=== PATIENT | female | born 1970 | race Caucasian/White ===

== ENCOUNTER 2020-02-17 07:55 | Day surgery (SDC) | payer OTHER ==
[~2020-02-17] VITALS: Ht 172.7 cm; Wt 83.0 kg
--- NOTE | 2020-02-17 09:00 | NUR ---
PATIENT RESTING BACK IN BED, CONVERSING WITH . NO NEEDS AT THIS TIME.
--- NOTE | 2020-02-17 10:00 | NUR ---
PATIENT UP TO BATHROOM, APPEARS STEADY ON FEET. NO OTHER NEEDS AT THIS TIME CALL LIGHT WITHINR REACH.
--- NOTE | 2020-02-17 11:14 | NUR ---
PATIENT RESTING BACK IN BED. IV FLUIDS DRIPPING, SITE TO LEFT HAND INFLAMED. DC'D IV. STARTED NEW IV TO LEFT HAND. PATIENT TOLERATED WELL. PROVIDED WARM BLANKETS. BAIRON MCCLOUD AND CHRIS NOGUERA TO ROOM NOTIFIED PATIENT WOULD BE WAITING FOR ANOTHER 2 HOURS.
--- NOTE | 2020-02-17 12:21 | NUR ---
PATIENT RESTING BACK IN BED, APPEARS TO BE NAPPING. AT BEDSIDE. NO NEEDS AT THIS TIME. VSS.
--- NOTE | 2020-02-17 15:18 | NUR ---
02/17/20 1518 Marisol Armstrong 1513: DR. BENTON IN TO TALK WITH PATIENT. PATIENT DENIES PAIN. C/O URGE TO VOID. LI CATHETER IN PLACE. EDUCATED PATIENT ON LI CATHETER.
--- NOTE | 2020-02-17 17:00 | NUR ---
PATIENT UP TO BATHROOM STEADY ON FEET. LI REMOVED, 400 CLEAR YELLOW URINE IN BAG. PATIENT RATES PAIN 2/10 ON PAIN SCALE WITH PAIN MEDICAITON ADMINISTERED. PROVIDED FLUIDS FOR PATIENT TO DRINK. PATIENT STATES " I WOULD LIKE TO GET OUT OF HERE BY 5:30" GOAL TO URINATE ON OWN BY THEN. SCRIPT IN PATIENT HAND WHO PLANS TO GET IT FILLED.
--- NOTE | 2020-02-17 17:39 | NUR ---
PT UP TO USE THE RESTROOM. PT AMBULATED INDEPENDENTLY WITH NO COMPLICATIONS. PT VOIDS 300ML WITH NO COMPLICATIONS.
--- NOTE | 2020-02-17 17:47 | NUR ---
REMOVED IV IN THE LEFT HAND. DC WAS WITHIN NORMAL LIMITS WITH NO COMPLICATIONS NOTED.
--- NOTE | 2020-02-17 18:04 | NUR ---
PROVIDED DISCHARGE EDUCATION TO PATIENT. ADMINISTERED SECOND TAB OF PERCOCET PER MAR TO PATIENT WHO RATED PAIN 4/10 ON PAIN SCALE, PATIENT HAS TO RIDE IN VEHICLE TO [facility] AND REQUESTED SECOND TAB. VSS. PROVIDED WHEELCHAIR RIDE TO FRONT, PATIENT TRANSFERED INTO VEHICLE EASY.
--- NOTE | 2020-02-22 14:04 | OR ---
[address] [place], [place] [address] Signed DATE OF OPERATION: 02/17/2020 SURGEON: Esau Bergeron MD PREOPERATIVE DIAGNOSIS: Heavy menstrual bleeding secondary to dysmenorrhea and adenomyosis. POSTOPERATIVE DIAGNOSIS: Heavy menstrual bleeding secondary to dysmenorrhea and adenomyosis. PROCEDURES PERFORMED: Total laparoscopic hysterectomy with bilateral salpingectomy and cystoscopy. INSURANCE AGENCY SALES MANAGER: Esau Bergeron M.D. INSURANCE AGENCY SALES MANAGER: Dr. Armstrong. ANESTHESIA: General. ESTIMATED BLOOD LOSS: 30 mL. SPECIMENS: Uterus with cervix and both fallopian tubes. DRAINS: Metz to bladder. PACKING: None. FINDINGS: Cervix small with stenotic os. Normal size and shaped uterus. The anterior cul-de-sac was free of any endometriosis or adhesions. The posterior cul-de-sac was free of any endometriosis or adhesions. The left tube with normal length and normal-appearing fimbriated end. The midportion of the tube missing from previous tubal ligation and no adhesions present and left ovary was normal size and shape without any evidence of Electronically Signed By: ESAU BERGERON MD 02/18/20 1253 PATIENT NAME: JESSICA TYLER OPERATIVE REPORT DATE OF : 72 REPORT #: [id number] PHYSICIAN: ESAU BERGERON MD PCP: NO PRIMARY CARE PHYSICIAN REPORT IS CONFIDENTIAL AND NOT TO BE RELEASED WITHOUT AUTHORIZATION [facility] [address] [place] [address], [place] [address] Signed endometriosis or adhesions. The right tube was normal length and normal-appearing fimbriated end, had small paratubal cyst present and showed evidence of previous tubal ligation and midportion of the tube missing. There were no adhesions present. Right ovary is normal size and shape without any evidence of endometriosis or adhesions. The rest of the abdomen is free of any masses or adhesions. The liver appeared normal and the right upper quadrant showed omentum with no other adhesions seen. DESCRIPTION OF PROCEDURE: The patient was brought into the operating room and placed in supine position. After adequate general anesthesia was obtained, she was placed in the dorsal lithotomy position, prepped and draped in the usual sterile fashion. Metz catheter was placed in the bladder and a weighted speculum placed in the vagina. The anterior lip of the cervix was grasped with an Allis clamp and the cervix serially dilated. There was difficulty getting the VCare uterine manipulator in place even after dilating the cervix, so attention was then drawn to the abdomen. A small infraumbilical skin incision was made with a scalpel after injecting the area with 0.25% Marcaine with epinephrine. Subcutaneous tissue was dissected with Metzenbaum scissors. The fascia identified and grasped with hemostats, elevated and nicked with Metzenbaum scissors and extended transverse fashion using Metzenbaum scissors. Retention stitch of 0-Vicryl suture was placed above and below the incision. The peritoneum was opened with finger dissection and S retractor was inserted into the incision and spun in 360-degree fashion showing no adhesions or blockage. The Jaycee cannula and sleeve entered the abdomen under direct visualization. The S retractor removed and the balloon filled with air. The outer sleeve was slid down to the skin and the retention stitches attached to this. Trocar was removed and laparoscope with video attachment entered the abdomen under direct visualization. Carbon dioxide was used as distending medium. The above findings were noted. In the left lower quadrant just below the level of the umbilicus approximately 10 cm lateral to the midline, the abdominal wall was transilluminated to avoid any vessels. The area injected with 0.25% Marcaine with epinephrine and a small skin incision made with a scalpel. A bladed 5-mm trocar and sleeve entered the abdomen under direct visualization. Trocar was removed and the balloon filled with air. On the right side, again just below the level of the umbilicus, an approximately 10 cm lateral to the midline. Again, the abdominal wall was transilluminated and the skin injected with 0.25% Marcaine with epinephrine and a small skin incision made with a scalpel. Veress needle with expandable sleeve was placed in the abdomen under direct visualization. The Veress needle was removed and expandable trocar and port placed through the expandable sleeve into the abdomen under direct visualization. Trocar was removed. Both instruments were then placed through the two lateral ports for the rest of the procedure. Once the uterus could be observed, attention was then drawn back to the Electronically Signed By: ESAU BERGERON MD 02/18/20 1253 PATIENT NAME: JESSICA TYLER OPERATIVE REPORT DATE OF : 72 REPORT #: [id number] PHYSICIAN: ESAU BERGERON MD PCP: NO PRIMARY CARE PHYSICIAN REPORT IS CONFIDENTIAL AND NOT TO BE RELEASED WITHOUT AUTHORIZATION [address] [address] Signed vagina, where the VCare manipulator was removed and again weighted speculum was placed in the vagina and the anterior lip of the cervix was grasped with Allis clamp and the cervix again dilated and the VCare uterine manipulator finally entered the uterine cavity, watching from above to make sure that went towards the fundus and not out of the uterus. The balloon was filled with air and the Allis clamp and weighted speculum were removed. The cervical cap slid up around the cervix and the vaginal cup was placed up against the cervical cap and tightened in place to hold the cap against the cervix. Attention was then drawn back to the abdomen. The LigaSure bipolar forceps were used for the dissection. The two fallopian tubes were cauterized along the mesosalpinx and then across the mesosalpinx at the area of the tubal ligation and the two distal tubal segments were removed. The left round ligament was cauterized in three places and then the utero-ovarian ligament cauterized in several places and cut. This opened the upper portion of the broad ligament. The anterior and posterior leaves of the broad ligament were then individually cauterized and cut down the length towards the cervical cap and around to the midline inside the cervical cap above and below the uterus. The uterine vessels were then exposed, these were cauterized in several places and cut. The paracervical tissue inside the cervical cap was cauterized and cut down to the level of the vaginal wall. The right side was then done in similar fashion, cauterizing the round ligament in several places and cutting the round ligament, cauterizing the uteroovarian ligament in several places and then individually cauterizing and cutting the broad ligament down the side of the uterus and to the midline connecting with previous dissection. Uterine vessels on this side were then identified, cauterized, and cut. The paracervical tissue on this side was cauterized and cut down to the vaginal wall. Once this was cleared down to the wall, the Sonicision was brought to the operating field and the midline posterior vaginal wall was opened with the Sonicision into the groove of the cervical cap and extended posterior to anterior on the left side and then posterior to anterior on the right side, staying in the groove of the cervical cap, the cervix and uterus from the vagina. The VCare uterine manipulator was then carefully removed with the uterus attached through the vagina and then a lap filled glove placed in the vagina, so that the abdomen could be re-insufflated. The abdomen was then irrigated, suctioned, and examined noted to have good hemostasis. The vaginal opening was easily seen. The Endo Stitch with barbed suture was then used to close the cuff starting at the right uterosacral ligament, posterior to anterior and then putting the stitch through the loop at the end of the barbed suture. The anterior vaginal wall at the corner was then sutured again posterior to anterior with the Endo stitch. This was continued from the right uterosacral ligament to the left uterosacral Electronically Signed By: ESAU BERGERON MD 02/18/20 1253 PATIENT NAME: JESSICA TYLER OPERATIVE REPORT DATE OF : 72 REPORT #: [id number] PHYSICIAN: ESAU BERGERON MD PCP: NO PRIMARY CARE PHYSICIAN REPORT IS CONFIDENTIAL AND NOT TO BE RELEASED WITHOUT AUTHORIZATION [facility] [address] [place], [place] [address] Signed ligament individually incorporating the posterior vaginal wall and the anterior vaginal wall across. Upon reaching the left uterosacral ligament several stitches were placed through the combined cuff back to the midline to lock this in place. The suture was then cut with laparoscopic scissors and the entire pelvis irrigated, suctioned, examined, and noted to have good hemostasis. At this point, all instruments were removed, the gas allowed to escape, and the final sleeves removed. The infraumbilical fascia was identified and then closed using running stitch of 0-Vicryl suture. The two retention stitches were tied together for further support. The three skin incisions were closed using subcuticular stitches of 4-0 Vicryl suture. The lap filled glove was removed from the vagina and the Metz catheter removed from the bladder and cystoscopy was then performed by introducing the 70-degree cystoscope into the urethra using sterile water as distending medium. The cystoscope was placed through the urethra into the bladder under direct visualization while distending with of sterile water. The dome of the bladder on both sides were carefully examined, showed no defects, no stitches, and no puckering. Both the ureteral orifices were identified and showed good flow of urine into the bladder. At this point, the bladder was drained through the cystoscopic sleeve and the cystoscope was removed, the bladder drained and the cystoscope sleeve removed. Metz catheter was placed back into the bladder. The patient tolerated the procedure well and went to the recovery room in good condition. The sponge, needle, and instrument counts were correct at the end the procedure. The uterus with attached cervix and both segments of fallopian tube were sent to Pathology for identification. MD KAJAL Velasquez/MARCIA /[id number] Copies: ~ Electronically Signed By: ESAU BERGERON MD 02/18/20 1253 PATIENT NAME: JESSICA TYLER OPERATIVE REPORT DATE OF : 72 REPORT #: [id number] PHYSICIAN: ESAU BERGERON MD PCP: NO PRIMARY CARE PHYSICIAN REPORT IS CONFIDENTIAL AND NOT TO BE RELEASED WITHOUT AUTHORIZATION
--- NOTE | 2020-02-24 09:39 | PATH ---
[facility] [address], [place] [address] Signed SPECIMEN(S): A CERVIX, UTERUS, TUBES SPECIMEN SOURCE: A. CERVIX, UTERUS, TUBES CLINICAL HISTORY: Heavy menstrual bleeding, dysmenorrhea, adenomyosis. TLH, BS, cysto. FINAL PATHOLOGIC DIAGNOSIS: Uterus, cervix, and bilateral fallopian tubes, hysterectomy and bilateral salpingectomy: - Cervix: No histopathologic abnormality. - Endometrium: Proliferative endometrium. - Myometrium: Adenomyosis, microscopic leiomyoma (1 mm in greatest dimension). - Serosa: No histopathologic abnormality. - Fallopian tubes: Two fallopian tubes, one with a paratubal cyst. - Negative for malignancy. NAL:cml:C2NR MICROSCOPIC EXAMINATION: Histologic sections of all submitted blocks are examined by light microscopy. These findings, together with the gross examination, support the pathologic diagnosis. GROSS DESCRIPTION: The specimen, labeled "BS, cervix, uterus, bilateral fallopian tubes," is received in formalin and consists of an unoriented uterus. The uterus cannot be oriented. The uterus measures 5.3 x 3.0 x 8.1 cm. The serosal surface is pink-marmolejo, smooth. The ectocervix is pink-marmolejo, focally congested and measures 3.0 x 3.1 cm. The uterus weighs 72 grams. Sectioning through the cervix reveals pink-marmolejo, homogenous tissue. The endometrial cavity measures 2.2 x 1.0 cm. It is lined with pink-red, smooth endometrium. Sectioning through myometrium reveals pink-marmolejo, homogenous tissue. No abnormalities are grossly identified. The myometrium measures 2.1 cm in thickness. The endometrium measures up to 0.1 cm in thickness. Separate from the uterus, within the container are two undesignated fallopian tubes. Both of them show fimbria and violaceous and smooth serosa. The first fallopian tube measures 1.7 x 0.7 cm. It PATIENT NAME: JESSICA TYLER PATHOLOGY DATE OF : 72 REPORT #: [id number] PHYSICIAN: NAN PATHOLOGY PCP: NO PRIMARY CARE PHYSICIAN REPORT IS CONFIDENTIAL AND NOT TO BE RELEASED WITHOUT AUTHORIZATION [facility] [address], [place] [address] Signed shows a paratubal cyst that measures 1.2 cm in greatest dimension. The cyst is filled with a clear fluid. The second fallopian tube measures 4.5 x 0.7 cm. The second tube is inked. Sectioning through both fallopian tubes is unremarkable. Cassette summary: (A1) cervix, manufacturer's representative sections (A2) endomyometrium, manufacturer's representative sections (A3) fallopian tubes, manufacturer's representative sections JS (under the direct supervision of a pathologist) The Gross Description was prepared using a voice recognition system. The report was reviewed for accuracy; however, sound-alike word errors, addition and/or deletions may occur. If there is any question about this report, please contact Client Services. PERFORMING LABORATORY: The technical component was performed by [email or web address] [address] (Correspondence Transcriber: Hilda Neri MD; CLIA# [id number]). [facility] [address] [address] (CLIA# [id number]). Diagnostician: Suzanna Kirby MD Pathologist Electronically Signed 02/24/2020 Copies: ~ PATIENT NAME: KRZYSZTOF TYLERJoesph SANDOVALE PATHOLOGY DATE OF : 72 REPORT #: [id number] PHYSICIAN: NAN PATHOLOGY PCP: NO PRIMARY CARE PHYSICIAN REPORT IS CONFIDENTIAL AND NOT TO BE RELEASED WITHOUT AUTHORIZATION
== END 2020-02-17 18:00 | disposition home or self-care (01) ==
LOC: DS 07:55 → OPS 07:55 → DS 08:00 → OPS 08:00
PROVIDERS: ATTEND General Practice
PROC: 0UT94ZZ Resection of Uterus, Percutaneous Endoscopic Approach (ICD-10-PCS; principal; 2020-02-17 09:00)
PROC: 0UT74ZZ Resection of Bilateral Fallopian Tubes, Percutaneous Endoscopic Approach (ICD-10-PCS; 2020-02-17 09:00)
DX: N80.0 Endometriosis of uterus (principal); D25.9 Leiomyoma of uterus, unspecified; N88.2 Stricture and stenosis of cervix uteri; N83.8 Other noninflammatory disorders of ovary, fallopian tube and broad ligament; F17.210 Nicotine dependence, cigarettes, uncomplicated; Z98.51 Tubal ligation status
CPT/HCPCS: 00840; J0690; J1100; J1644; J1885; J2001; J2405; J2704; J3010; J7121

== ENCOUNTER 2021-11-26 08:38 | Emergency (ER) | payer OTHER ==
[~2021-11-26] VITALS: Ht 170.2 cm; Wt 89.4 kg
[2021-11-26] MEDS ORDERED: HYDROCODON-ACE1 EA10 PO (13:47)
== END 2021-11-26 14:33 | disposition home or self-care (01) ==
LOC: ED 08:38
DX: R10.31 Right lower quadrant pain (principal); N83.201 Unspecified ovarian cyst, right side; F17.200 Nicotine dependence, unspecified, uncomplicated
CPT/HCPCS: 36415; 74177; 76830; 76856; 80053; 81001; 85025; J2270; J7030; Q9967